=== PATIENT | male | born 1970 | race Caucasian/White ===

== ENCOUNTER 2025-04-24 06:46 | Day surgery (SDC) | payer BC ==
[2025-04-24] MEDS: Lactated Ringers 1,000 ML IV SCH (07:04)
[2025-04-24] MEDS ORDERED: Propofol 200 MG/20 ML SDV ONE (07:26)
[2025-04-24] MEDS ORDERED: fentaNYL 50 MCG/ML SDV ONE (07:26)
[2025-04-24] MEDS ORDERED: Midazolam 1 MG/ML 2 ML SDV ONE (07:26)
[2025-04-24] MEDS ORDERED: Flumazenil 0.1 MG/ML 5 ML MDV ONE (07:26)
[2025-04-24] MEDS ORDERED: Ketamine 200 MG/20 ML MDV ONE (07:26)
== END 2025-04-24 08:44 | disposition home or self-care (01) ==
LOC: CC.SDS 06:46
PROVIDERS: ATTEND Family Medicine
DX: Z12.11 Encounter for screening for malignant neoplasm of colon (principal); D12.2 Benign neoplasm of ascending colon; K63.5 Polyp of colon; I10 Essential (primary) hypertension; E11.9 Type 2 diabetes mellitus without complications; Z79.899 Other long term (current) drug therapy
CPT/HCPCS: 45380; 45385; J2250; J2704; J3010; J3490; J7120